=== PATIENT | female | born 1960 | race Caucasian/White ===

== ENCOUNTER 2017-12-03 06:00 | Day surgery (SDC) | payer OTHER ==
[2017-12-03 06:41] LABS: ADD MAN DIFF? NO
[2017-12-03 06:47] LABS: WHITE BLOOD COUNT 8.7 10^3/ul (4.8-10.8)
[2017-12-03 06:47] LABS: BASOPHILS % 0.5 % (0.0-2.0); EOSINOPHILS # 0.3 10^3/ul (0.0-0.5); EOSINOPHILS % 3.2 % (0.0-7.0); HEMATOCRIT 34.8 % (37.0-47.0); HEMOGLOBIN 11.5 g/dl (12.0-16.0); LYMPHOCYTES # 2.3 10^3/ul (0.8-2.9); LYMPHOCYTES % 26.6 % (15.0-51.0); MEAN CORPUSCULAR HEMOGLOBIN 32.8 pg (29.0-33.0); MEAN CORPUSCULAR VOLUME 99.1 fl (82.0-101.0); MEAN PLATELET VOLUME 9.6 fl (7.4-10.4); MONOCYTE # 0.8 10^3/ul (0.3-0.9); MONOCYTES % 8.7 % (0.0-11.0); NEUTROPHIL # 5.3 10^3/ul (1.6-7.5); NEUTROPHILS % 60.7 % (39.0-77.0); PLATELET COUNT 195 10^3/UL (140-415); RED BLOOD COUNT 3.51 10^6/ul (4.20-5.40); RED CELL DISTRIBUTION WIDTH 14.1 % (11.5-14.5)
[2017-12-03] MEDS ORDERED: THROMBIN 5000 UNIT VIAL (06:50)
[2017-12-03] MEDS ORDERED: GELATIN SIZE 100 SPONGE (06:50)
[2017-12-03 07:05] LABS: INR 0.96; PROTIME 12.9 Sec (11.9-14.9)
[2017-12-03 07:24] LABS: ANION GAP 19 (5-13); BLOOD UREA NITROGEN 97 mg/dl (7-20); CARBON DIOXIDE 23 mmol/L (21-31); CHLORIDE 97 mmol/L (97-110); CREATININE 9.17 mg/dl (0.44-1.00); Estimated GFR 4 mL/min (>60); GLUCOSE 113 mg/dl (70-220); SODIUM 139 mmol/L (135-144)
[2017-12-03] MEDS ORDERED: PROPOFOL 40 ML (07:36)
[2017-12-03] MEDS ORDERED: CEFAZOLIN 1 GM INJ (07:36)
[2017-12-03] MEDS ORDERED: MIDAZOLAM 1 MG/ML 2 ML INJ (07:37)
[2017-12-03] MEDS ORDERED: FENTAnyl 50 MCG/ML VIAL (07:37)
[2017-12-03] MEDS ORDERED: ROPIVACAINE 0.2% 20 ML VIAL (07:37)
[2017-12-03 07:43] LABS: PARTIAL THROMBOPLASTIN TIME 42.4 Sec (23.0-35.0)
[2017-12-03] MEDS: HEPARIN 1000 UNITS/ML 10 ML INJ (08:13)
[2017-12-03] MEDS: LIDOCAINE 2% (MDV) 20 ML INJ (08:14)
[2017-12-03] MEDS ORDERED: HYDROmorphONE 1 MG/5 ML IV SYRINGE IV ×2 (09:00)
[2017-12-03] MEDS ORDERED: LABETALOL HCL 20MG INJ IV (09:00)
[2017-12-03] MEDS ORDERED: OXYCODONE/ACETAMINOPHEN (5/325) TAB PO ×2 (09:00)
[2017-12-03] MEDS ORDERED: ONDANSETRON 4 MG INJ IV (09:00)
[2017-12-03] MEDS: hydrALAzine 20 MG INJ IV ×2 (09:23→10:15)
[2017-12-03] MEDS: HYDROmorphONE 1 MG/5 ML IV SYRINGE IV (09:26)
== END 2017-12-03 11:47 | disposition home or self-care (01) ==
LOC: SDS 06:00
DX: I12.0 Hypertensive chronic kidney disease with stage 5 chronic kidney disease or end stage renal disease (principal); N18.6 End stage renal disease; E11.9 Type 2 diabetes mellitus without complications; Z86.73 Personal history of transient ischemic attack (TIA), and cerebral infarction without residual deficits
CPT/HCPCS: 36821; 71045; 80048; 82962; 85025; 85610; 85730; 93005

== ENCOUNTER 2018-01-07 17:36 | Observation (INO) | payer OTHER ==
[2018-01-07 18:00] LABS: ADD MAN DIFF? NO
[2018-01-07 18:04] LABS: BASOPHIL # 0.1 10^3/ul (0.0-0.1); BASOPHILS % 0.5 % (0.0-2.0); EOSINOPHILS # 0.1 10^3/ul (0.0-0.5); EOSINOPHILS % 0.4 % (0.0-7.0); HEMATOCRIT 32.3 % (37.0-47.0); HEMOGLOBIN 10.9 g/dl (12.0-16.0); LYMPHOCYTES # 1.4 10^3/ul (0.8-2.9); LYMPHOCYTES % 9.4 % (15.0-51.0); MEAN CORPUSCULAR HEMOGLOBIN 33.1 pg (29.0-33.0); MEAN CORPUSCULAR HGB CONC 33.7 g/dl (32.0-37.0); MEAN CORPUSCULAR VOLUME 98.2 fl (82.0-101.0); MEAN PLATELET VOLUME 9.9 fl (7.4-10.4); MONOCYTE # 1.2 10^3/ul (0.3-0.9); MONOCYTES % 7.9 % (0.0-11.0); NEUTROPHIL # 12.1 10^3/ul (1.6-7.5); NEUTROPHILS % 81.3 % (39.0-77.0); PLATELET COUNT 261 10^3/UL (140-415); RED BLOOD COUNT 3.29 10^6/ul (4.20-5.40)
[2018-01-07 18:04] LABS: WHITE BLOOD COUNT 14.8 10^3/ul (4.8-10.8)
[2018-01-07 18:25] LABS: BLOOD UREA NITROGEN 59 mg/dl (7-20); CALCIUM 9.6 mg/dl (8.4-10.2); CARBON DIOXIDE 30 mmol/L (21-31); CREATININE 5.56 mg/dl (0.44-1.00); Estimated GFR 8 mL/min (>60); GLUCOSE 224 mg/dl (70-220); POTASSIUM 4.7 mmol/L (3.5-5.1); SODIUM 138 mmol/L (135-144)
[2018-01-07 18:27] LABS: ANION GAP 15 (5-13); CHLORIDE 93 mmol/L (97-110)
[2018-01-07 18:37] LABS: TROPONIN-I < 0.012 ng/ml (0.000-0.120)
[2018-01-07] MEDS: ASPIRIN 81 MG TAB PO (19:06)
[2018-01-07] MEDS: NITROGLYCERIN 2% 1 GM OINT PKT TD (19:06)
[2018-01-07] MEDS: NITROGLYCERIN (SL) 0.4 MG TAB SL (22:22)
[2018-01-07] MEDS ORDERED: ONDANSETRON 4 MG TAB PO (23:30)
[2018-01-07] MEDS ORDERED: ACETAMINOPHEN 325 MG TAB PO (23:30)
[2018-01-07] MEDS ORDERED: traMADol 50 MG TAB PO (23:30)
[2018-01-07] MEDS ORDERED: HYDROCODONE/APAP (5/325) TAB PO ×2 (23:30)
[2018-01-07] MEDS ORDERED: MAGNESIUM HYDROXIDE 30ML CUP PO (23:30)
[2018-01-07] MEDS ORDERED: INSULIN GLARGINE [LANtus] 3 ML PEN SC (23:30)
[2018-01-07] MEDS ORDERED: ALBUTEROL/IPRATROPIUM (NEB) 3 ML AMP HHN (23:30)
[2018-01-07] MEDS ORDERED: NACL 0.9% 3 ML SYG IV (23:30)
[2018-01-07] MEDS ORDERED: NITROGLYCERIN (SL) 0.4 MG TAB SL (23:30)
[2018-01-07 23:39] LABS: CREATINE KINASE < 20 IU/L (23-200)
[2018-01-07] MEDS ORDERED: GLUCAGON 1 MG INJ IM (23:45)
[2018-01-07] MEDS ORDERED: GLUCOSE GEL 15 GRAM TUBE PO ×2 (23:45)
[2018-01-07] MEDS ORDERED: GLUCOSE GEL 15 GRAM TUBE BUCCAL (23:45)
[2018-01-07] MEDS ORDERED: DEXTROSE 50% 50 ML SYRINGE IV ×2 (23:45)
[2018-01-07 23:50] LABS: CK-MB < 0.22 ng/ml (0.0-2.4); TROPONIN-I < 0.012 ng/ml (0.000-0.120)
[2018-01-08] MEDS: ACCU-CHEK XX (02:00)
[2018-01-08 05:52] LABS: WHITE BLOOD COUNT 9.7 10^3/ul (4.8-10.8)
[2018-01-08 05:52] LABS: ADD MAN DIFF? NO; BASOPHILS % 0.4 % (0.0-2.0); EOSINOPHILS # 0.1 10^3/ul (0.0-0.5); EOSINOPHILS % 0.5 % (0.0-7.0); HEMATOCRIT 28.1 % (37.0-47.0); HEMOGLOBIN 9.3 g/dl (12.0-16.0); LYMPHOCYTES # 1.8 10^3/ul (0.8-2.9); LYMPHOCYTES % 18.2 % (15.0-51.0); MEAN CORPUSCULAR HEMOGLOBIN 32.7 pg (29.0-33.0); MEAN CORPUSCULAR HGB CONC 33.1 g/dl (32.0-37.0); MEAN CORPUSCULAR VOLUME 98.9 fl (82.0-101.0); MEAN PLATELET VOLUME 9.8 fl (7.4-10.4); MONOCYTE # 1.2 10^3/ul (0.3-0.9); MONOCYTES % 12.2 % (0.0-11.0); NEUTROPHIL # 6.6 10^3/ul (1.6-7.5); NEUTROPHILS % 68.3 % (39.0-77.0); PLATELET COUNT 191 10^3/UL (140-415); RED BLOOD COUNT 2.84 10^6/ul (4.20-5.40); RED CELL DISTRIBUTION WIDTH 13.9 % (11.5-14.5)
[2018-01-08 06:24] LABS: HEMOGLOBIN A1C 6.7 % (0-5.9)
[2018-01-08 06:28] LABS: CK-MB < 0.22 ng/ml (0.0-2.4); TROPONIN-I < 0.012 ng/ml (0.000-0.120)
[2018-01-08 06:29] LABS: ALANINE AMINOTRANSFERASE 34 IU/L (13-69); ALBUMIN 3.7 g/dl (3.3-4.9); ALBUMIN/GLOBULIN RATIO 1.23; ALKALINE PHOSPHATASE 120 IU/L (42-121); ANION GAP 13 (5-13); ASPARTATE AMINO TRANSFERASE 18 IU/L (15-46); BILIRUBIN,INDIRECT 0.2 mg/dl (0-1.1); BILIRUBIN,TOTAL 0.2 mg/dl (0.2-1.3); BLOOD UREA NITROGEN 70 mg/dl (7-20); CALCIUM 8.7 mg/dl (8.4-10.2); CARBON DIOXIDE 28 mmol/L (21-31); CHLORIDE 95 mmol/L (97-110); CHOLESTEROL 64 mg/dl (100-200); CREATININE 6.97 mg/dl (0.44-1.00); Estimated GFR 6 mL/min (>60); GLUCOSE 145 mg/dl (70-220); HDL CHOLESTEROL 31 mg/dl (37-92); LDL CHOLESTEROL,CALCULATED 5 mg/dl; MAGNESIUM 2.2 mg/dl (1.7-2.5); POTASSIUM 4.8 mmol/L (3.5-5.1); SODIUM 136 mmol/L (135-144); TOTAL PROTEIN 6.7 g/dl (6.1-8.1); TRIGLYCERIDES 142 mg/dl (0-149)
[2018-01-08 06:37] LABS: CREATINE KINASE < 20 IU/L (23-200)
[2018-01-08 06:44] LABS: THYROID STIMULATING HORMONE 0.894 MIU/L (0.465-4.680)
[2018-01-08] MEDS: INSULIN ASPART [NOVOLOG] 3 ML PEN SC ×2 (08:00→12:08)
[2018-01-08] MEDS ORDERED: HEPARIN 5,000 UNIT/0.5 ML VIAL (08:52)
[2018-01-08] MEDS: FOLIC ACID 1 MG TAB PO (09:03)
[2018-01-08] MEDS: RANITIDINE 150 MG TAB PO (09:03)
[2018-01-08] MEDS: ASPIRIN 81 MG TAB PO (09:03)
[2018-01-08] MEDS: ASCORBIC ACID 500 MG TAB PO (09:03)
[2018-01-08] MEDS: SEVELAMER CARBONATE 0.8 GM PKT PO ×2 (09:03→12:01)
[2018-01-08] MEDS: ARIPIPRAZOLE 5 MG TAB PO (09:04)
[2018-01-08] MEDS: METOPROLOL 50 MG TAB PO (09:04)
[2018-01-08] MEDS: HEPARIN 5,000 UNIT/1 ML VIAL SC (09:12)
[2018-01-08] MEDS ORDERED: DOCUSATE SODIUM 100 MG CAP PO (21:00)
[2018-01-08] MEDS ORDERED: ATORVASTATIN 80 MG TAB PO (21:00)
[2018-01-08] MEDS ORDERED: INSULIN GLARGINE [LANTus] (100 UNITS/ML) SYG SC (21:00)
== END 2018-01-08 13:57 ==
LOC: E/R 17:36 → 6WM 19:10
DX: R07.9 Chest pain, unspecified (principal); I12.0 Hypertensive chronic kidney disease with stage 5 chronic kidney disease or end stage renal disease; E10.22 Type 1 diabetes mellitus with diabetic chronic kidney disease; N18.6 End stage renal disease; Z99.2 Dependence on renal dialysis; Z79.4 Long term (current) use of insulin; F20.9 Schizophrenia, unspecified; E78.5 Hyperlipidemia, unspecified; F32.9 Major depressive disorder, single episode, unspecified; Z86.73 Personal history of transient ischemic attack (TIA), and cerebral infarction without residual deficits
CPT/HCPCS: 36415; 71045; 80048; 80053; 80061; 82550; 82553; 82962; 83036; 83735; 84443; 84484; 85025; 87081; 93005; 99285-25; G0378